=== PATIENT | female | born 1995 | race Hispanic/Latino ===

== ENCOUNTER 2018-04-24 10:54 | Emergency (ER) | payer OTHER, SELFPAY ==
[2018-04-24] MEDS ORDERED: ONDANSETRON 4 MG/2 ML VIAL ONE (11:55)
[2018-04-24] MEDS ORDERED: MORPHINE 4 MG/ML SYR ONE (11:55)
--- NOTE | 2018-04-24 11:58 | RAD REPORT ---
EXAM DESCRIPTION: US - Abdomen Exam Limited - 04/24/2018 11:28 am CLINICAL HISTORY: RUQ pain Abdominal pain. COMPARISON: No comparisons FINDINGS: The gallbladder demonstrates small shadowing gallstones. No pericholecystic fluid or gallb ladder wall thickening. The common bile duct is normal measuring 3 mm. The liver demonstrates no findings of intrahepatic biliary dilatation. IMPRESSION: Cholelithiasis.
--- NOTE | 2018-04-24 12:00 | RAD REPORT ---
EXAM DESCRIPTION: RAD - Chest Single View - 04/24/2018 11:31 am CLINICAL HISTORY: Chest pain. COMPARISON: None. FINDINGS: Portable technique limits examination quality. The lungs are grossly clear. The heart is normal in size. No displaced fractures. IMPRESSION: No acute intrathoracic process suspected.
[2018-04-24 12:07] LABS: Urine Blood 2+ (NEG); Urine Glucose NEGATIVE (NEG); Urine Protein TRACE (NEG); Urine Specific Gravity 1.025 (1.005-1.030)
[2018-04-24 12:12] LABS: Urine Bacteria >50 /HPF (<20); Urine Culture Reflex Order REFLEXED; Urine Mucus 1+ /HPF (NONE SEEN)
[2018-04-24 12:34] LABS: Bicarbonate 24 mEq/L (21-31); Glucose Level 115 mg/dL (65-120); Lipase 24 U/L (22-51); Potassium 3.8 mEq/L (3.6-5.0); Sodium Level 136 mEq/L (135-145)
[2018-04-24 12:40] LABS: ALT/SGPT 169 IU/L (10-60); AST/SGOT 215 IU/L (10-42); Albumin 4.4 g/dL (3.2-5.5); Alkaline Phosphatase 100 IU/L (42-121); Amylase Level 60 U/L (28-100); BUN Blood Urea Nitrogen 14 mg/dL (6-20); Bilirubin Direct 0.3 mg/dL (0-0.2); Bilirubin Total 0.7 mg/dL (0.3-1.2); Protein, Total 8.2 g/dL (6.0-8.3)
[2018-04-24 12:48] LABS: Absolute Lymphocytes (CBC) 0.9 K/uL (0.7-4.9); Absolute Monocytes 0.3 K/uL (0.1-1.3); Absolute Neutrophil 6.4 K/uL (1.8-8.0); Basophils % 0.5 % (0-1.3); Eosinophils % 0.2 % (0-4.4); Hematocrit 35.7 % (36.0-45.0); MCH 26.9 pg (27.0-35.0); Monocytes % 3.9 % (3.3-12.3); RBC Red Blood Cell Count 4.52 M/uL (3.86-4.86)
[2018-04-24] MEDS ORDERED: KETOROLAC 30 MG/ML INJ ONE (13:25)
--- NOTE | 2018-04-24 14:06 | EKG ---
Test Date: 2018-04-24 Test Time: 11:37:06 [place] Mixer Operator: EVETTE MEASUREMENT RESULTS: Intervals: Rate: 70 MA: 140 QRSD: 78 QT: 400 QTc: 432 Emeigh: P: 46 MA: 140 QRS: 4 T: 44 INTERPRETIVE STATEMENTS: Normal sinus rhythm with sinus arrhythmia Normal ECG No previous ECG available for comparison Electronically Signed On 04-24-18 14:05:43 CDT by Harmeet Sanchez
[2018-04-24] MEDS ORDERED: CEFTRIAXONE/SWI 1gm 1 GM/10 ML SYR ONE (15:26)
--- NOTE | 2018-04-24 15:52 | ER ---
Nurse's Notes [facility] Name: Leanne Espinoza Age: 22 yrs Sex: Female : 1995 Arrival Date: 04/24/2018 Time: 10:57 Bed 23 Private MD: None, None Diagnosis: Cholelithiasis Presentation: 04/24 10:58 Presenting complaint: Patient states: epigastric pain since 0600 today. Pt states "I aa5 know I have gastritis pains but this time is not going away and I'm having a hard time breathing". Pt reports N/V. Transition of care: patient was not received from another setting of care. Onset of symptoms was April 24, 2018. Risk Assessment: Do you want to hurt yourself or someone else? Patient reports no desire to harm self or others. Initial Sepsis Screen: Does the patient meet any 2 criteria? No. Patient's initial sepsis screen is negative. Does the patient have a suspected source of infection? No. Patient's initial sepsis screen is negative. Care prior to arrival: None. 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 - Social history:: Smoking status: Patient/guardian denies using tobacco. - Ebola Screening: : No symptoms or risks identified at this time. Screenin:12 Abuse screen: Denies threats or abuse. Denies injuries from another. Nutritional aj1 screening: No deficits noted. Tuberculosis screening: No symptoms or risk factors identified. Assessment: 11:12 General: Appears in no apparent distress. uncomfortable, Behavior is calm, cooperative, aj1 appropriate for age. Pain: Complains of pain in epigastric area Pain radiates to chest Quality of pain is described as crampy, Pain began 5 hours ago Aggravated by eating, drinking. Neuro: Level of Consciousness is awake, alert, obeys commands, Oriented to person, place, time, situation, Speech is normal, Facial symmetry appears normal. Cardiovascular: Patient's skin is warm and dry. Respiratory: Reports shortness of breath Airway is patent Respiratory effort is even, unlabored, Respiratory pattern is regular, symmetrical, Breath sounds are clear bilaterally. GI: Abdomen is flat, non-distended, Bowel sounds present X 4 quads. Abd is soft X 4 quads Abdomen is tender to palpation in epigastric area, right upper quadrant and left upper quadrant Reports nausea, vomiting. : No signs and/or symptoms were reported regarding the genitourinary system. EENT: No signs and/or symptoms were reported regarding the EENT system. Derm: No signs and/or symptoms reported regarding the dermatologic system. Skin is pink, warm \\T\\ dry. normal. Musculoskeletal: No signs and/or symptoms reported regarding the musculoskeletal system. Circulation, motion, and sensation intact. 12:18 Reassessment: Patient appears in no apparent distress at this time. No changes from aj1 previously documented assessment. Patient and/or family updated on plan of care and expected duration. Pain level reassessed. Patient is alert, oriented x 3, equal unlabored respirations, skin warm/dry/pink. 13:27 Reassessment: Patient states that the morphine helped her pain, but now it is coming aj1 back. Notified Clarice Martínez NP. Order received. 14:41 Reassessment: Patient appears in no apparent distress at this time. No changes from aj1 previously documented assessment. Patient and/or family updated on plan of care and expected duration. Pain level reassessed. Patient is alert, oriented x 3, equal unlabored respirations, skin warm/dry/pink. 15:29 Reassessment: Patient appears in no apparent distress at this time. No changes from aj1 previously documented assessment. Patient and/or family updated on plan of care and expected duration. Pain level reassessed. Patient is alert, oriented x 3, equal unlabored respirations, skin warm/dry/pink. Patient states that she would like to speak with the provider again. Notified Clarice Martínez NP. Vital Signs: 10:59 BP 123 / 77; Pulse 83; Resp 16 S; Temp 98.3(TE); Pulse Ox 100% on R/A; Weight 72.57 kg aa5 (R); Height 5 ft. 4 in. (162.56 cm) (R); Pain 7/10; 12:18 BP 107 / 70; Pulse 63; Resp 18; Pulse Ox 99% on R/A; aj1 13:28 BP 114 / 80; Pulse 62; Resp 18; Pulse Ox 100% on R/A; aj1 14:41 BP 104 / 71; Pulse 63; Resp 18; Pulse Ox 100% on R/A; aj1 15:30 BP 102 / 73; Pulse 63; Resp 18; Pulse Ox 100% on R/A; aj1 10:59 Body Mass Index 27.46 (72.57 kg, 162.56 cm) aa5 ED Course: 10:57 Patient arrived in ED. sb2 10:57 None, None is Private Physician. sb2 10:59 Triage completed. aa5 10:59 Arm band placed on. aa5 11:00 Jacqui Mantilla, RAJNI is Primary Nurse. aj1 11:02 Magan Martínez NP is PHCP. pm1 11:02 Marcelo Elder MD is Attending Physician. pm1 11:12 Patient has correct armband on for positive identification. Placed in gown. Bed in low aj1 position. Call light in reach. Side rails up X 1. 11:12 No provider procedures requiring assistance completed. aj1 11:13 Patient taken to ultrasound. via wheelchair. aa4 11:28 US Abdomen Limited In Process Unspecified. EDMS 11:30 Chest Single View XRAY In Process Unspecified. EDMS 11:47 EKG done, by aerospace technician. reviewed by Magan Martínez NP. sm3 12:10 Initial lab(s) drawn, by in, sent to lab. Inserted saline lock: 22 gauge in right aj1 antecubital area, using aseptic technique. Blood collected. 15:50 Ta Blackburn MD is Referral Physician. pm1 Administered Medications: 12:11 Drug: morphine 4 mg Route: IVP; Site: right antecubital; aj1 12:11 Drug: Zofran 4 mg Route: IVP; Site: right antecubital; aj1 13:29 Drug: TORadol 30 mg Route: IVP; Site: right antecubital; aj1 15:28 Drug: Rocephin 1 grams Route: IV; Rate: calculated rate; Site: right antecubital; aj1 Outcome: 15:52 Discharge ordered by . pm1 16:19 Patient left the ED. aj1 Signatures: Dispatcher [employer] Jacqui Morin RN RN aj1 Marilynn Patel aa4 Susan Burrell RN RN aa5 Magan Martínez, PHOTOENGRAVING PROOFER APPRENTICE PHOTOENGRAVING PROOFER APPRENTICE pm1 Krystal Garrett sb2 Denae Smith sm3
--- NOTE | 2018-04-24 15:52 | EDPHYS ---
Physician Documentation [facility] Name: Leanne Espinoza Age: 22 yrs Sex: Female : 1995 Arrival Date: 04/24/2018 Time: 10:57 Bed 23 Private MD: None, None ED Physician Marcelo Elder HPI: 04/24 14:00 This 22 yrs old Female presents to ER via Ambulatory with complaints of pm1 Abdominal Pain. 14:00 The patient presents with abdominal pain in the epigastric area. Onset: The pm1 symptoms/episode began/occurred 3 day(s) ago. The symptoms do not radiate. Associated signs and symptoms: Pertinent positives: nausea and vomiting, Pertinent negatives: diarrhea, dysuria, fever. The symptoms are described as achy, burning. Modifying factors: The symptoms are alleviated by nothing, the symptoms are aggravated by food. Severity of pain: in the emergency department the pain is unchanged. The patient has experienced similar episodes in the past, a few times, over the past year. The patient has not recently seen a physician. 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 - Social history:: Smoking status: Patient/guardian denies using tobacco. - Ebola Screening: : No symptoms or risks identified at this time. ROS: 14:00 Constitutional: Negative for fever, chills, and weight loss, Eyes: Negative for injury, pm1 pain, redness, and discharge, ENT: Negative for injury, pain, and discharge, Neck: Negative for injury, pain, and swelling, Cardiovascular: Negative for chest pain, palpitations, and edema, Respiratory: Negative for shortness of breath, cough, wheezing, and pleuritic chest pain. 14:00 Back: Negative for injury and pain, : Negative for injury, bleeding, discharge, and swelling, MS/Extremity: Negative for injury and deformity, Skin: Negative for injury, rash, and discoloration, Neuro: Negative for headache, weakness, numbness, tingling, and seizure. 14:00 Abdomen/GI: Positive for abdominal pain, nausea and vomiting, Negative for diarrhea. Exam: 14:00 Constitutional: This is a well developed, well nourished patient who is awake, alert, pm1 and in no acute distress. Head/Face: Normocephalic, atraumatic. Eyes: Pupils equal round and reactive to light, extra-ocular motions intact. Lids and lashes normal. Conjunctiva and sclera are non-icteric and not injected. Cornea within normal limits. Periorbital areas with no swelling, redness, or edema. ENT: Nares patent. No nasal discharge, no septal abnormalities noted. Tympanic membranes are normal and external auditory canals are clear. Oropharynx with no redness, swelling, or masses, exudates, or evidence of obstruction, uvula midline. Mucous membranes moist. Neck: Trachea midline, no thyromegaly or masses palpated, and no cervical lymphadenopathy. Supple, full range of motion without nuchal rigidity, or vertebral point tenderness. No Meningismus. Chest/axilla: Normal chest wall appearance and motion. Nontender with no deformity. No lesions are appreciated. Cardiovascular: Regular rate and rhythm with a normal S1 and S2. No gallops, murmurs, or rubs. Normal PMI, no JVD. No pulse deficits. Respiratory: Lungs have equal breath sounds bilaterally, clear to auscultation and percussion. No rales, rhonchi or wheezes noted. No increased work of breathing, no retractions or nasal flaring. 14:00 Back: No spinal tenderness. No costovertebral tenderness. Full range of motion. Skin: Warm, dry with normal turgor. Normal color with no rashes, no lesions, and no evidence of cellulitis. MS/ Extremity: Pulses equal, no cyanosis. Neurovascular intact. Full, normal range of motion. 14:00 Abdomen/GI: Inspection: abdomen appears normal, Bowel sounds: normal, Palpation: soft, mild abdominal tenderness, in the right upper quadrant, mass, is not appreciated, rebound tenderness, is not appreciated. 14:00 Neuro: Orientation: is normal, Gait: is steady. Vital Signs: 10:59 BP 123 / 77; Pulse 83; Resp 16 S; Temp 98.3(TE); Pulse Ox 100% on R/A; Weight 72.57 kg aa5 (R); Height 5 ft. 4 in. (162.56 cm) (R); Pain 7/10; 12:18 BP 107 / 70; Pulse 63; Resp 18; Pulse Ox 99% on R/A; aj1 13:28 BP 114 / 80; Pulse 62; Resp 18; Pulse Ox 100% on R/A; aj1 14:41 BP 104 / 71; Pulse 63; Resp 18; Pulse Ox 100% on R/A; aj1 15:30 BP 102 / 73; Pulse 63; Resp 18; Pulse Ox 100% on R/A; aj1 10:59 Body Mass Index 27.46 (72.57 kg, 162.56 cm) aa5 MDM: 11:08 Patient medically screened. pm1 15:49 Data reviewed: vital signs. Data interpreted: Pulse oximetry: on room air is 100 %. pm1 Interpretation: normal. Counseling: I had a detailed discussion with the patient and/or guardian regarding: the historical points, exam findings, and any diagnostic results supporting the discharge/admit diagnosis, lab results, radiology results, the need for outpatient follow up, a general surgeon, to return to the emergency department if symptoms worsen or persist or if there are any questions or concerns that arise at home. 15:50 ED course: Patient reevaluated. No tenderness with palpation and patient currently pain pm1 free. Will discharge patient home to follow up with general surgery. 04/24 11:10 Order name: Amylase, Serum; Complete Time: 13:45 pm1 04/24 11:10 Order name: Basic Metabolic Panel; Complete Time: 13:45 pm1 04/24 11:10 Order name: CBC with Diff; Complete Time: 13:45 pm1 04/24 11:10 Order name: Hepatic Function; Complete Time: 13:45 pm1 04/24 11:10 Order name: Lipase; Complete Time: 13:45 pm1 04/24 11:10 Order name: Urine Microscopic Only; Complete Time: 12:32 pm1 04/24 11:10 Order name: Troponin (emerg Dept Use Only); Complete Time: 13:45 pm1 04/24 11:10 Order name: Chest Single View XRAY; Complete Time: 12:32 pm1 04/24 11:11 Order name: US Abdomen Limited; Complete Time: 12:32 pm1 04/24 11:31 Order name: Urine Dipstick--Ancillary (enter results); Complete Time: 12:32 bd 04/24 11:31 Order name: Urine --Ancillary (enter results); Complete Time: 12:32 bd 04/24 12:14 Order name: Urine Culture [facility] 04/24 11:10 Order name: Urine Test (obtain specimen); Complete Time: 11:49 pm1 04/24 11:10 Order name: IV Saline Lock; Complete Time: 12:57 pm1 04/24 11:10 Order name: Labs collected and sent; Complete Time: 12:57 pm1 04/24 11:10 Order name: Urine Dipstick-Ancillary (obtain specimen); Complete Time: 11:49 pm1 04/24 11:10 Order name: EKG; Complete Time: 11:11 pm1 04/24 11:10 Order name: EKG - Nurse/Tech; Complete Time: 11:49 pm1 Administered Medications: 12:11 Drug: morphine 4 mg Route: IVP; Site: right antecubital; aj1 12:11 Drug: Zofran 4 mg Route: IVP; Site: right antecubital; aj1 13:29 Drug: TORadol 30 mg Route: IVP; Site: right antecubital; aj1 15:28 Drug: Rocephin 1 grams Route: IV; Rate: calculated rate; Site: right antecubital; aj1 Disposition: 04/24/18 15:52 Discharged to Home. Impression: Cholelithiasis. - Condition is Stable. - Discharge Instructions: Urinary Tract Infection, Cholelithiasis. - Prescriptions for Bentyl 20 mg Oral Tablet - take 1 tablet by ORAL route every 6 hours As needed; 20 tablet. Tylenol- Codeine #3 300-30 mg Oral Tablet - take 2 tablets by ORAL route every 6 hours As needed; 20 tablet. Zofran 4 mg Oral Tablet - take 1 tablet by ORAL route every 12 hours As needed; 20 tablet. Bactrim DS 800- 160 mg Oral Tablet - take 1 tablet by ORAL route every 12 hours for 10 days; 20 tablet. - Medication Reconciliation Form, Thank You Letter, Antibiotic Education, Prescription Opioid Use form. - Follow up: Emergency Department; When: As needed; Reason: Worsening of condition. Follow up: Ta Blackburn MD; When: 2 - 3 days; Reason: Recheck today's complaints, Continuance of care, Re-evaluation by your physician. - Problem is new. - Symptoms have improved. Addendum: 04/28/2018 07:03 Co-signature as Attending Physician, Marcelo Elder MD I agree with the assessment and k dr plan of care. Signatures: Dispatcher [employer] EDMS Jacqui Mantilla RN RN aj1 Marcelo Elder MD MD [facility] Susan Burrell RN RN aa5 Magan Martínez NP VOICE WRITING REPORTER pm1 Corrections: (The following items were deleted from the chart) 04/24 16:19 15:52 04/24/2018 15:52 Discharged to Home. Impression: Cholelithiasis. Condition is aj1 Stable. Forms are Medication Reconciliation Form, Thank You Letter, Antibiotic Education, Prescription Opioid Use. Follow up: Emergency Department; When: As needed; Reason: Worsening of condition. Follow up: Ta Blackburn; When: 2 - 3 days; Reason: Recheck today's complaints, Continuance of care, Re-evaluation by your physician. Problem is new. Symptoms have improved. pm1
== END 2018-04-24 16:19 | disposition home or self-care (01) ==
LOC: ER 10:54
DX: K80.20 Calculus of gallbladder without cholecystitis without obstruction (principal)
CPT/HCPCS: 36415; 71045; 76705; 80048; 80076; 81003; 81015; 81025; 82150; 83690; 84484; 85025; 87086; 87088; 93005; 96374; 96375; 99284; J0696; J2405

== ENCOUNTER 2018-06-01 21:24 | Emergency (ER) | payer OTHER ==
[2018-06-01] MEDS ORDERED: MORPHINE 4 MG/ML SYR ONE (22:17)
[2018-06-01] MEDS ORDERED: KETOROLAC 30 MG/ML INJ ONE (22:18)
[2018-06-01] MEDS ORDERED: NA CHLORIDE 0.9% 1,000 ML ONE (22:18)
[2018-06-01] MEDS ORDERED: ONDANSETRON 4 MG/2 ML VIAL ONE (22:18)
[2018-06-01 22:22] LABS: Absolute Lymphocytes (CBC) 1.5 K/uL (0.7-4.9); Absolute Monocytes 0.5 K/uL (0.1-1.3); Absolute Neutrophil 8.9 K/uL (1.8-8.0); Basophils % 0.3 % (0-1.3); Eosinophils % 0.3 % (0-4.4); Hematocrit 37.4 % (36.0-45.0); Lymphocytes % 13.3 % (15.3-44.8); MCH 26.9 pg (27.0-35.0); MCV 81.1 fL (80-100); MPV 7.9 fL (7.6-11.3); Monocytes % 4.9 % (3.3-12.3); RBC Red Blood Cell Count 4.62 M/uL (3.86-4.86)
[2018-06-01 22:26] LABS: Urine Blood TRACE (NEG); Urine Glucose NEGATIVE (NEG); Urine Protein NEGATIVE (NEG); Urine Specific Gravity 1.025 (1.005-1.030); Urine pH 6.5 (5.0-7.0)
[2018-06-01 22:36] LABS: ALT/SGPT 33 U/L (12-78); AST/SGOT 22 U/L (15-37); Albumin 4.4 g/dL (3.4-5.0); Alkaline Phosphatase 111 U/L (45-117); BUN Blood Urea Nitrogen 11 mg/dL (7-18); Bicarbonate 25 mmol/L (21-32); Bilirubin Direct 0.2 mg/dL (0-0.2); Bilirubin Total 0.4 mg/dL (0.2-1.0); Glucose Level 128 mg/dL (74-106); Lipase 88 U/L (73-393); Potassium 3.5 mmol/L (3.5-5.1); Protein, Total 8.7 g/dL (6.4-8.2); Sodium Level 140 mmol/L (136-145)
--- NOTE | 2018-06-02 00:56 | ER ---
Nurse's Notes [facility] Name: Leanne Espinoza Age: 22 yrs Sex: Female : 1995 Arrival Date: 06/01/2018 Time: 21:25 Bed 15 Private MD: Diagnosis: Cholelithiasis Presentation: 06/01 21:34 Presenting complaint: Patient states: epigastric pain and right upper quadrant pain ak1 since 1800. N/V. Transition of care: patient was not received from another setting of care. Onset of symptoms was June 01, 2018. Risk Assessment: Do you want to hurt yourself or someone else? Patient reports no desire to harm self or others. Initial Sepsis Screen: Does the patient meet any 2 criteria? No. Patient's initial sepsis screen is negative. Does the patient have a suspected source of infection? No. Patient's initial sepsis screen is negative. Care prior to arrival: None. 21:34 Method Of Arrival: Ambulatory ak1 21:34 Acuity: ACE 3 ak1 WRAPPER STEMMER HAND: 21:36 LMP 05/24/2018 ak1 Historical: - Allergies: 21:36 No Known Allergies; ak1 - Home Meds: 21:36 ursodiol 300 mg Oral cap 1 cap 2 times per day [Active]; ak1 - PMHx: 21:36 gastritis; gallstones; ak1 - PSHx: 21:36 ear sx; ak1 - Immunization history:: Adult Immunizations up to date. - Social history:: Smoking status: Patient/guardian denies using tobacco. - Ebola Screening: : No symptoms or risks identified at this time. Screenin:56 Abuse screen: Denies threats or abuse. Denies injuries from another. Nutritional bs1 screening: No deficits noted. Tuberculosis screening: No symptoms or risk factors identified. Fall Risk None identified. Assessment: 22:34 General: Appears in no apparent distress. uncomfortable, Behavior is cooperative, bs1 appropriate for age, anxious. Pain: Complains of pain in epigastric, right upper/lower abdomen Pain does not radiate. Neuro: Level of Consciousness is awake, alert, obeys commands, Oriented to person, place, time, situation, Appropriate for age Industrial Gas Servicer Helper are equal bilaterally. Cardiovascular: Denies chest pain, shortness of breath, Heart tones S1 S2 present Capillary refill < 3 seconds Patient's skin is warm and dry. Respiratory: Airway is patent Trachea midline Respiratory effort is even, unlabored, Respiratory pattern is regular, symmetrical, Breath sounds are clear bilaterally. GI: Abdomen is round non-distended, Bowel sounds present X 4 quads. Abdomen is tender to palpation in epigastric area, right upper quadrant and right lower quadrant Guarding noted Reports lower abdominal pain, upper abdominal pain, nausea, vomiting. : Denies burning with urination. EENT: No signs and/or symptoms were reported regarding the EENT system. Derm: Skin is intact. Musculoskeletal: Circulation, motion, and sensation intact. Capillary refill < 3 seconds, Range of motion:. 23:45 Reassessment: Patient appears in no apparent distress at this time. Patient and/or bs1 family updated on plan of care and expected duration. Pain level reassessed. Patient is alert, oriented x 3, equal unlabored respirations, skin warm/dry/pink. Pending CT results. 06/02 01:04 Reassessment: Patient appears in no apparent distress at this time. Patient and/or bs1 family updated on plan of care and expected duration. Pain level reassessed. Patient is alert, oriented x 3, equal unlabored respirations, skin warm/dry/pink. Patient states understanding of DC instrcutions Patient states feeling better. Vital Signs: 06/01 21:36 BP 129 / 82; Pulse 97; Resp 18; Temp 97.7(TE); Pulse Ox 99% on R/A; Weight 71.67 kg ak1 (R); Height 5 ft. 4 in. (162.56 cm) (R); Pain 10/10; 22:30 BP 129 / 89; Pulse 71; Resp 16 S; Pulse Ox 95% on R/A; bs1 23:30 BP 124 / 84; Pulse 70; Resp 17 S; Pulse Ox 100% on R/A; bs1 06/02 00:30 BP 122 / 82; Pulse 57; Resp 16; Temp 97.9(O); Pulse Ox 99% on R/A; Pain 3/10; bs1 06/01 21:36 Body Mass Index 27.12 (71.67 kg, 162.56 cm) ak ED Course: 06/01 21:25 Patient arrived in ED. es 21:35 Triage completed. ak1 21:36 Arm band placed on Patient placed in an exam room, on a stretcher, Patient notified of ak1 wait time. 21:40 Magan Martínez NP is PHCP. pm1 21:40 Varghese Subramanian MD is Attending Physician. pm1 21:49 Andree Morrell, RAJNI is Primary Nurse. bs1 22:03 US Abdomen Limited In Process Unspecified. EDMS 22:57 Patient has correct armband on for positive identification. Bed in low position. Call bs1 light in reach. Side rails up X 1. Pulse ox on. NIBP on. 06/02 00:56 Ta Blackburn MD is Referral Physician. pm1 01:02 No provider procedures requiring assistance completed. IV discontinued, bleeding bs1 controlled, No redness/swelling at site. Pressure dressing applied. Administered Medications: 06/01 22: Drug: NS 0.9% 1000 ml Route: IV; Rate: 1000 ml; Site: right antecubital; bs1 06/02 01:03 Follow up: IV Status: Completed infusion bs1 06/01 22: Drug: TORadol 30 mg Route: IVP; Site: right antecubital; bs1 06/02 01:03 Follow up: Response: No adverse reaction bs1 06/01 22:24 Drug: Zofran 4 mg Route: IVP; Site: right antecubital; bs1 06/02 01:03 Follow up: Response: No adverse reaction bs1 06/01 22:24 Drug: morphine 4 mg Route: IVP; Site: right antecubital; bs1 06/02 01:03 Follow up: Response: No adverse reaction bs1 Outcome: 00:55 Discharge ordered by . pm1 01:02 Discharged to home ambulatory, with family. bs1 01:02 Condition: stable 01:02 Discharge instructions given to patient, Instructed on discharge instructions, follow up and referral plans. medication usage, Demonstrated understanding of instructions, follow-up care, medications, Prescriptions given X 2. 01:06 Patient left the ED. bs1 Signatures: Dispatcher [employer] Karen Pink Amber, RN RN ak1 Magan Martínez, GAMAL DIPLOMATIC COURIER pm1 Andree Morrell, RAJNI RN bs1
--- NOTE | 2018-06-02 00:56 | EDPHYS ---
Physician Documentation [facility] Name: Leanne Espinoza Age: 22 yrs Sex: Female : 1995 Arrival Date: 06/01/2018 Time: 21:25 Bed 15 Private MD: ED Physician Varghese Subramanian HPI: 06/01 22:00 This 22 yrs old Female presents to ER via Ambulatory with complaints of pm1 Abdominal Pain. 22:00 The patient presents with abdominal pain in the epigastric area, in the right upper pm1 quadrant. Onset: The symptoms/episode began/occurred this morning. The symptoms do not radiate. Associated signs and symptoms: Pertinent negatives: nausea, vomiting, and diarrhea, chest pain, dysuria, fever, shortness of breath. The symptoms are described as achy, crampy. Modifying factors: The symptoms are alleviated by nothing, the symptoms are aggravated by food, Potato chips this AM. Severity of pain: in the emergency department the pain is actually worse. The patient has experienced a previous episode, approximately 1 months ago, and the symptoms today are exactly the same, cholellithiasis. The patient has been recently seen at the [facility] Emergency Department, last month. 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 - Social history:: Smoking status: Patient/guardian denies using tobacco. - Ebola Screening: : No symptoms or risks identified at this time. ROS: 22:00 Constitutional: Negative for fever, chills, and weight loss, Eyes: Negative for injury, pm1 pain, redness, and discharge, ENT: Negative for injury, pain, and discharge, Neck: Negative for injury, pain, and swelling, Cardiovascular: Negative for chest pain, palpitations, and edema, Respiratory: Negative for shortness of breath, cough, wheezing, and pleuritic chest pain. 22:00 Back: Negative for injury and pain, : Negative for injury, bleeding, discharge, and swelling, MS/Extremity: Negative for injury and deformity, Skin: Negative for injury, rash, and discoloration, Neuro: Negative for headache, weakness, numbness, tingling, and seizure. 22:00 Abdomen/GI: Positive for abdominal pain, Negative for nausea, vomiting, and diarrhea. Exam: 22:00 Constitutional: This is a well developed, well nourished patient who is awake, alert, pm1 and in no acute distress. Head/Face: Normocephalic, atraumatic. Eyes: Pupils equal round and reactive to light, extra-ocular motions intact. Lids and lashes normal. Conjunctiva and sclera are non-icteric and not injected. Cornea within normal limits. Periorbital areas with no swelling, redness, or edema. ENT: Nares patent. No nasal discharge, no septal abnormalities noted. Tympanic membranes are normal and external auditory canals are clear. Oropharynx with no redness, swelling, or masses, exudates, or evidence of obstruction, uvula midline. Mucous membranes moist. Neck: Trachea midline, no thyromegaly or masses palpated, and no cervical lymphadenopathy. Supple, full range of motion without nuchal rigidity, or vertebral point tenderness. No Meningismus. Chest/axilla: Normal chest wall appearance and motion. Nontender with no deformity. No lesions are appreciated. Cardiovascular: Regular rate and rhythm with a normal S1 and S2. No gallops, murmurs, or rubs. Normal PMI, no JVD. No pulse deficits. Respiratory: Lungs have equal breath sounds bilaterally, clear to auscultation and percussion. No rales, rhonchi or wheezes noted. No increased work of breathing, no retractions or nasal flaring. 22:00 Back: No spinal tenderness. No costovertebral tenderness. Full range of motion. Skin: Warm, dry with normal turgor. Normal color with no rashes, no lesions, and no evidence of cellulitis. MS/ Extremity: Pulses equal, no cyanosis. Neurovascular intact. Full, normal range of motion. 22:00 Abdomen/GI: Inspection: abdomen appears normal, Bowel sounds: normal, Palpation: soft, mild abdominal tenderness, in the epigastric area. 22:00 Neuro: Orientation: is normal, Motor: is normal, moves all fours. Vital Signs: 21:36 BP 129 / 82; Pulse 97; Resp 18; Temp 97.7(TE); Pulse Ox 99% on R/A; Weight 71.67 kg ak1 (R); Height 5 ft. 4 in. (162.56 cm) (R); Pain 10/10; 22:30 BP 129 / 89; Pulse 71; Resp 16 S; Pulse Ox 95% on R/A; bs1 23:30 BP 124 / 84; Pulse 70; Resp 17 S; Pulse Ox 100% on R/A; bs1 06/02 00:30 BP 122 / 82; Pulse 57; Resp 16; Temp 97.9(O); Pulse Ox 99% on R/A; Pain 3/10; bs1 06/01 21:36 Body Mass Index 27.12 (71.67 kg, 162.56 cm) ak1 MDM: 06/01 21:40 Patient medically screened. pm1 06/02 00:54 Data reviewed: vital signs. Data interpreted: Pulse oximetry: on room air is 100 %. pm1 Interpretation: normal. Counseling: I had a detailed discussion with the patient and/or guardian regarding: the historical points, exam findings, and any diagnostic results supporting the discharge/admit diagnosis, lab results, radiology results, the need for outpatient follow up, for definitive care, a general surgeon, to return to the emergency department if symptoms worsen or persist or if there are any questions or concerns that arise at home. 01:00 ED course: Abdomen soft and non-tender. patient's pain improved with medications given. pm1 Patient has hydrocodone at home. 06/01 21:41 Order name: Basic Metabolic Panel; Complete Time: 22:41 pm1 06/01 21:41 Order name: CBC with Diff; Complete Time: 22:41 pm1 06/01 21:41 Order name: Hepatic Function; Complete Time: 22:41 pm1 06/01 21:41 Order name: Lipase; Complete Time: 22:41 pm1 06/01 22:13 Order name: Urine Dipstick--Ancillary (enter results); Complete Time: 22:41 mt 06/01 22:13 Order name: Urine --Ancillary (enter results); Complete Time: 22:41 mt 06/01 21:41 Order name: Urine Test (obtain specimen); Complete Time: 22:13 pm1 06/01 21:41 Order name: IV Saline Lock; Complete Time: 22:13 pm1 06/01 21:41 Order name: Labs collected and sent; Complete Time: 22:13 pm1 06/01 21:42 Order name: US Abdomen Limited pm1 06/01 21:41 Order name: Urine Dipstick-Ancillary (obtain specimen); Complete Time: 22:13 pm1 Administered Medications: 06/01 22: Drug: NS 0.9% 1000 ml Route: IV; Rate: 1000 ml; Site: right antecubital; 1 06/02 01:03 Follow up: IV Status: Completed infusion bs1 06/01 22: Drug: TORadol 30 mg Route: IVP; Site: right antecubital; [facility] 06/02 01:03 Follow up: Response: No adverse reaction [facility] 06/01 22:24 Drug: Zofran 4 mg Route: IVP; Site: right antecubital; 1 06/02 01:03 Follow up: Response: No adverse reaction [facility] 06/01 22: Drug: morphine 4 mg Route: IVP; Site: right antecubital; 1 06/02 01:03 Follow up: Response: No adverse reaction 1 Disposition: :18 Co-signature as Attending Physician, Varghese Subramanian MD. Disposition: 06/02/18 00:55 Discharged to Home. Impression: Cholelithiasis. - Condition is Stable. - Discharge Instructions: Cholelithiasis. - Prescriptions for Bentyl 20 mg Oral Tablet - take 1 tablet by ORAL route every 6 hours As needed; 20 tablet. Zofran 4 mg Oral Tablet - take 1 tablet by ORAL route every 12 hours As needed; 20 tablet. - Medication Reconciliation Form, Thank You Letter, Prescription Opioid Use form. - Follow up: Emergency Department; When: As needed; Reason: Worsening of condition. Follow up: Private Physician; When: 2 - 3 days; Reason: Recheck today's complaints, Continuance of care, Re-evaluation by your physician. Follow up: Ta Blackburn MD; When: 2 - 3 days; Reason: Recheck today's complaints, Continuance of care, Re-evaluation by your physician. - Problem is new. - Symptoms have improved. Signatures: Dispatcher [employer] EDFranchesca Guerra, RN RN ak1 Magan Martínez, SERVICE DESK AGENT SERVICE DESK AGENT pm1 Varghese Subramanian MD MD Andree Morrell, RN RN bs1 Corrections: (The following items were deleted from the chart) 00:56 00:55 06/02/2018 00:55 Discharged to Home. Impression: Cholelithiasis. Condition is pm1 Stable. Forms are Medication Reconciliation Form, Thank You Letter, Antibiotic Education, Prescription Opioid Use. Follow up: Emergency Department; When: As needed; Reason: Worsening of condition. Follow up: Private Physician; When: 2 - 3 days; Reason: Recheck today's complaints, Continuance of care, Re-evaluation by your physician. Problem is new. Symptoms have improved. pm1 01:06 00:56 06/02/2018 00:55 Discharged to Home. Impression: Cholelithiasis. Condition is bs1 Stable. Discharge Instructions: Cholelithiasis. Prescriptions for Bentyl 20 mg Oral Tablet - take 1 tablet by ORAL route every 6 hours As needed; 20 tablet, Zofran 4 mg Oral Tablet - take 1 tablet by ORAL route every 12 hours As needed; 20 tablet. and Forms are Medication Reconciliation Form, Thank You Letter, Prescription Opioid Use. Follow up: Emergency Department; When: As needed; Reason: Worsening of condition. Follow up: Private Physician; When: 2 - 3 days; Reason: Recheck today's complaints, Continuance of care, Re-evaluation by your physician. Follow up: Ta Blackburn; When: 2 - 3 days; Reason: Recheck today's complaints, Continuance of care, Re-evaluation by your physician. Problem is new. Symptoms have improved. pm1
--- NOTE | 2018-06-02 08:12 | RAD REPORT ---
EXAM DESCRIPTION: US - Abdomen Exam Limited - 06/01/2018 10:03 pm CLINICAL HISTORY: Abdominal pain. COMPARISON: April 2018 A preliminary report was generated by virtual radiologic and reviewed prior to this dictation. FINDINGS: Several gallstones are present. The gallbladder wall is upper limits normal thickness. The biliary tree is normal caliber. IMPRESSION: Cholelithiasis
== END 2018-06-02 01:06 | disposition home or self-care (01) ==
LOC: ER 21:24
DX: K80.20 Calculus of gallbladder without cholecystitis without obstruction (principal)
CPT/HCPCS: 36415; 76705; 80048; 80076; 81003; 81025; 83690; 85025; 96361; 96374; 96375; 99284; J2405; J7030

== ENCOUNTER 2018-06-07 22:41 | Emergency (ER) | payer OTHER ==
[2018-06-08] LABS: Urine Blood 1+ (NEG); Urine Glucose NEGATIVE (NEG); Urine Protein NEGATIVE (NEG); Urine Specific Gravity 1.025 (1.005-1.030); Urine pH 6.5 (5.0-7.0)
[2018-06-08] MEDS ORDERED: MORPHINE 4 MG/ML SYR ONE (00:26)
[2018-06-08] MEDS ORDERED: KETOROLAC 30 MG/ML INJ ONE (00:26)
[2018-06-08] MEDS ORDERED: ONDANSETRON 4 MG/2 ML VIAL ONE (00:26)
[2018-06-08 00:30] LABS: Absolute Monocytes 0.4 K/uL (0.1-1.3); Basophils % 0.4 % (0-1.3); Eosinophils % 2.1 % (0-4.4); Hematocrit 35.9 % (36.0-45.0); Lymphocytes % 26.5 % (15.3-44.8); MCH 27.4 pg (27.0-35.0); MCV 80.5 fL (80-100); MPV 7.6 fL (7.6-11.3); Monocytes % 5.7 % (3.3-12.3); RBC Red Blood Cell Count 4.46 M/uL (3.86-4.86)
[2018-06-08 00:51] LABS: ALT/SGPT 27 U/L (12-78); AST/SGOT 19 U/L (15-37); Albumin 4.1 g/dL (3.4-5.0); Alkaline Phosphatase 104 U/L (45-117); BUN Blood Urea Nitrogen 11 mg/dL (7-18); Bicarbonate 26 mmol/L (21-32); Bilirubin Direct 0.1 mg/dL (0-0.2); Bilirubin Total 0.4 mg/dL (0.2-1.0); Glucose Level 108 mg/dL (74-106); Lipase 90 U/L (73-393); Potassium 3.8 mmol/L (3.5-5.1); Protein, Total 8.3 g/dL (6.4-8.2); Sodium Level 142 mmol/L (136-145)
[2018-06-08] MEDS ORDERED: NA CHLORIDE 0.9% 1,000 ML ONE (01:07)
--- NOTE | 2018-06-08 02:47 | ER ---
Nurse's Notes [facility] Name: Leanne Espinoza Age: 22 yrs Sex: Female : 1995 Arrival Date: 06/07/2018 Time: 22:43 Bed 17 Private MD: Diagnosis: Cholelithiasis Presentation: 06/07 23:02 Presenting complaint: Patient states: "I have abdominal pain because of the gall lp1 stones"; Diagnosed last month, scheduled surgery with Dr. Silva but waited to perform because of insurance; States pain worse, not controlled with prescribed Hydrocodone. Transition of care: patient was not received from another setting of care. Onset of symptoms was June 07, 2018. Risk Assessment: Do you want to hurt yourself or someone else? Patient reports no desire to harm self or others. Initial Sepsis Screen: Does the patient meet any 2 criteria? No. Patient's initial sepsis screen is negative. Does the patient have a suspected source of infection? No. Patient's initial sepsis screen is negative. Care prior to arrival: None. 23:02 Method Of Arrival: Ambulatory lp1 23:02 Acuity: ACE 3 lp1 SMALL BUSINESS SALES REPRESENTATIVE: 23:05 LMP 05/10/2018 lp1 Historical: - Allergies: 23:06 No Known Allergies; lp1 - Home Meds: 23:06 ursodiol 300 mg Oral cap 1 cap 2 times per day [Active]; Hydrocodone [Active]; Zofran lp1 Oral [Active]; - PMHx: 23:06 GALLSTONES; gastritis; lp1 - PSHx: 23:06 Ear Tubes; lp1 - Immunization history:: Adult Immunizations up to date. - Social history:: Smoking status: Patient/guardian denies using tobacco. - Ebola Screening: : No symptoms or risks identified at this time. Screenin:21 Abuse screen: Denies threats or abuse. Denies injuries from another. Nutritional lp1 screening: No deficits noted. Tuberculosis screening: No symptoms or risk factors identified. Fall Risk None identified. Assessment: 23:20 General: Appears uncomfortable, Behavior is appropriate for age. Pain: Complains of lp1 pain in epigastric area Pain radiates to right upper quadrant and left upper quadrant Pain currently is 9 out of 10 on a pain scale. Alleviated by nothing. Noted to be guarding. Neuro: Level of Consciousness is awake, alert, obeys commands. Cardiovascular: Patient's skin is warm and dry. Respiratory: Respiratory effort is even, unlabored. GI: Abdomen is non-distended, Bowel sounds present X 4 quads. Abdomen is tender to palpation in epigastric area and right upper quadrant. : No signs and/or symptoms were reported regarding the genitourinary system. EENT: No signs and/or symptoms were reported regarding the EENT system. Derm: Skin is pink, warm \\T\\ dry. Musculoskeletal: Circulation, motion, and sensation intact. 06/08 00:45 Reassessment: No changes from previously documented assessment. Patient and/or family bs1 updated on plan of care and expected duration. Pain level reassessed. Patient is alert, oriented x 3, equal unlabored respirations, skin warm/dry/pink. Informed patient of POC/pending CT scan. No further needs at this time. 02:45 Reassessment: Patient appears in no apparent distress at this time. Patient and/or bs1 family updated on plan of care and expected duration. Pain level reassessed. Patient is alert, oriented x 3, equal unlabored respirations, skin warm/dry/pink. Patient states feeling better. Patient states symptoms have improved. 03:13 Reassessment: Informed patient on discharge instructions, to stay away from fast/fried bs1 food/spicy food. Patient states understanding of POC. Vital Signs: 06/07 23:06 BP 132 / 91; Pulse 62; Resp 16; Temp 98.3(O); Pulse Ox 99% on R/A; Weight 71.67 kg; lp1 Height 5 ft. 0 in. (152.40 cm); Pain 9/10; 06/08 00:06 BP 127 / 91; Pulse 64; Resp 16 S; Pulse Ox 97% on R/A; bs1 01:06 BP 116 / 85; Pulse 61; Resp 16 S; Pulse Ox 98% ; bs1 02:06 BP 114 / 84; Pulse 60; Resp 16 S; Pulse Ox 97% on R/A; bs1 03:00 BP 125 / 84; Pulse 55; Resp 16; Temp 97.9(O); Pulse Ox 98% on R/A; Pain 4/10; bs1 06/07 23:06 Body Mass Index 30.86 (71.67 kg, 152.40 cm) lp1 ED Course: 06/07 22:43 Patient arrived in ED. es 23:05 Triage completed. lp1 23:05 Arm band placed on left wrist. lp1 06/08 00:03 Andree Morrell, RAJNI is Primary Nurse. bs1 00:04 Magan Martínez NP is PHCP. pm1 00:04 Varghese Subramanian MD is Attending Physician. pm1 00:20 Patient has correct armband on for positive identification. Bed in low position. Call bs1 light in reach. Side rails up X 1. Pulse ox on. NIBP on. 00:22 Initial lab(s) drawn, by me, sent to lab. Inserted saline lock: 22 gauge in right ks6 antecubital area, using aseptic technique. Blood collected. 00:[address] via wheelchair. kw1 00:44 CT Abd/Pelvis - W/Contrast: IV contrast only In Process Unspecified. EDMS 00:47 CT completed. Patient tolerated procedure well. Patient moved back from CT. kw1 03:10 No provider procedures requiring assistance completed. IV discontinued, bleeding bs1 controlled, No redness/swelling at site. Pressure dressing applied. Administered Medications: 00:29 Drug: TORadol 30 mg Route: IVP; Site: right antecubital; bs1 03:11 Follow up: Response: No adverse reaction bs1 00:29 Drug: morphine 4 mg Route: IVP; Site: right antecubital; bs1 03:11 Follow up: Response: No adverse reaction bs1 00:29 Drug: Zofran 4 mg Route: IVP; Site: right antecubital; bs1 03:11 Follow up: Response: No adverse reaction bs1 01:07 Drug: NS 0.9% 1000 ml Route: IV; Rate: 1000 ml; Site: right antecubital; bs1 03:11 Follow up: IV Status: Completed infusion bs1 Outcome: 02:46 Discharge ordered by . pm1 03:10 Discharged to home ambulatory, with family. bs1 03:10 Condition: stable 03:10 Discharge instructions given to patient, Instructed on discharge instructions, follow up and referral plans. medication usage, Demonstrated understanding of instructions, follow-up care, medications, Prescriptions given X 1. 03:15 Patient left the ED. bs1 Signatures: Dispatcher [employer] aKren Pink Laura, RN RN lp1 Magan Martínez, RV PARTS AND SERVICE DIRECTOR RV PARTS AND SERVICE DIRECTOR pm1 Bisi Aparicio1 Andree Morrell RN RN bs1 Alo Webb ks6
--- NOTE | 2018-06-08 02:47 | EDPHYS ---
Physician Documentation [facility] Name: Leanne Espinoza Age: 22 yrs Sex: Female : 1995 Arrival Date: 06/07/2018 Time: 22:43 Bed 17 Private MD: ED Physician Varghese Subramanian HPI: 06/08 01:00 This 22 yrs old Female presents to ER via Ambulatory with complaints of pm1 Abdominal Pain. 01:00 The patient presents with abdominal pain in the epigastric area, in the right upper pm1 quadrant. Onset: The symptoms/episode began/occurred today. The symptoms radiate to right back. Associated signs and symptoms: Pertinent negatives: nausea, vomiting, and diarrhea, chest pain, dysuria, fever, shortness of breath. The symptoms are described as crampy. Modifying factors: The symptoms are alleviated by nothing, the symptoms are aggravated by food. Severity of pain: in the emergency department the pain is actually worse. The patient has experienced similar episodes in the past, multiple times, and the symptoms today are exactly the same, to previous cholelithiasis DX 6 days ago. The patient has been recently seen by a physician: Dr. Silva, general surgeon at [place] 2 day(s) ago. Patient with schedule surgery on 06/15 or 06/21. DIRECTOR IMAGING: 06/07 23:05 LMP 05/10/2018 lp1 Historical: - Allergies: 23:06 No Known Allergies; lp1 - Home Meds: 23:06 ursodiol 300 mg Oral cap 1 cap 2 times per day [Active]; Hydrocodone [Active]; Zofran lp1 Oral [Active]; - PMHx: 23:06 GALLSTONES; gastritis; lp1 - PSHx: 23:06 Ear Tubes; lp1 - Immunization history:: Adult Immunizations up to date. - Social history:: Smoking status: Patient/guardian denies using tobacco. - Ebola Screening: : No symptoms or risks identified at this time. ROS: 06/08 01:00 Constitutional: Negative for fever, chills, and weight loss, Eyes: Negative for injury, pm1 pain, redness, and discharge, ENT: Negative for injury, pain, and discharge, Neck: Negative for injury, pain, and swelling, Cardiovascular: Negative for chest pain, palpitations, and edema, Respiratory: Negative for shortness of breath, cough, wheezing, and pleuritic chest pain. Back: Negative for injury and pain, : Negative for injury, bleeding, discharge, and swelling, MS/Extremity: Negative for injury and deformity, Skin: Negative for injury, rash, and discoloration, Neuro: Negative for headache, weakness, numbness, tingling, and seizure. Abdomen/GI: Positive for abdominal pain, Negative for nausea, vomiting, and diarrhea. Exam: 01:00 Constitutional: This is a well developed, well nourished patient who is awake, alert, pm1 and in no acute distress. Head/Face: Normocephalic, atraumatic. Eyes: Pupils equal round and reactive to light, extra-ocular motions intact. Lids and lashes normal. Conjunctiva and sclera are non-icteric and not injected. Cornea within normal limits. Periorbital areas with no swelling, redness, or edema. ENT: Nares patent. No nasal discharge, no septal abnormalities noted. Tympanic membranes are normal and external auditory canals are clear. Oropharynx with no redness, swelling, or masses, exudates, or evidence of obstruction, uvula midline. Mucous membranes moist. Neck: Trachea midline, no thyromegaly or masses palpated, and no cervical lymphadenopathy. Supple, full range of motion without nuchal rigidity, or vertebral point tenderness. No Meningismus. Chest/axilla: Normal chest wall appearance and motion. Nontender with no deformity. No lesions are appreciated. Cardiovascular: Regular rate and rhythm with a normal S1 and S2. No gallops, murmurs, or rubs. Normal PMI, no JVD. No pulse deficits. Respiratory: Lungs have equal breath sounds bilaterally, clear to auscultation and percussion. No rales, rhonchi or wheezes noted. No increased work of breathing, no retractions or nasal flaring. 01:00 Back: No spinal tenderness. No costovertebral tenderness. Full range of motion. Skin: Warm, dry with normal turgor. Normal color with no rashes, no lesions, and no evidence of cellulitis. MS/ Extremity: Pulses equal, no cyanosis. Neurovascular intact. Full, normal range of motion. 01:00 Abdomen/GI: Inspection: abdomen appears normal, Bowel sounds: normal, Palpation: soft, mild abdominal tenderness, in the right upper quadrant, mass, is not appreciated, rebound tenderness, is not appreciated. 01:00 Neuro: Orientation: is normal, Motor: is normal, moves all fours. Vital Signs: 06/07 23:06 BP 132 / 91; Pulse 62; Resp 16; Temp 98.3(O); Pulse Ox 99% on R/A; Weight 71.67 kg; lp1 Height 5 ft. 0 in. (152.40 cm); Pain 9/10; 06/08 00:06 BP 127 / 91; Pulse 64; Resp 16 S; Pulse Ox 97% on R/A; bs1 01:06 BP 116 / 85; Pulse 61; Resp 16 S; Pulse Ox 98% ; bs1 02:06 BP 114 / 84; Pulse 60; Resp 16 S; Pulse Ox 97% on R/A; bs1 03:00 BP 125 / 84; Pulse 55; Resp 16; Temp 97.9(O); Pulse Ox 98% on R/A; Pain 4/10; bs1 06/07 23:06 Body Mass Index 30.86 (71.67 kg, 152.40 cm) lp1 MDM: 00:06 Patient medically screened. pm1 02:00 Data reviewed: vital signs. Data interpreted: Pulse oximetry: on room air is 98 %. pm1 Interpretation: normal. 02:46 Counseling: I had a detailed discussion with the patient and/or guardian regarding: the pm1 historical points, exam findings, and any diagnostic results supporting the discharge/admit diagnosis, lab results, radiology results, the need for outpatient follow up, for definitive care, a general surgeon, to return to the emergency department if symptoms worsen or persist or if there are any questions or concerns that arise at home. 06/07 23:44 Order name: Urine Dipstick--Ancillary (enter results) ms 06/07 23:44 Order name: Urine --Ancillary (enter results) ms 06/08 00:07 Order name: Basic Metabolic Panel; Complete Time: 00:55 pm1 06/08 00:07 Order name: CBC with Diff; Complete Time: 00:36 pm1 06/08 00:07 Order name: Hepatic Function; Complete Time: 00:55 pm1 06/08 00:07 Order name: Lipase; Complete Time: 00:55 pm1 06/07 23:23 Order name: Urine Dipstick-Ancillary (obtain specimen); Complete Time: 00:03 lp1 06/08 00:07 Order name: IV Saline Lock; Complete Time: 00:23 pm1 06/08 00:07 Order name: Labs collected and sent; Complete Time: 00:23 pm1 06/08 00:13 Order name: CT Abd/Pelvis - W/Contrast: IV contrast only pm1 Administered Medications: 00:29 Drug: TORadol 30 mg Route: IVP; Site: right antecubital; bs1 03:11 Follow up: Response: No adverse reaction bs1 00:29 Drug: morphine 4 mg Route: IVP; Site: right antecubital; bs1 03:11 Follow up: Response: No adverse reaction bs1 00:29 Drug: Zofran 4 mg Route: IVP; Site: right antecubital; bs1 03:11 Follow up: Response: No adverse reaction bs1 01:07 Drug: NS 0.9% 1000 ml Route: IV; Rate: 1000 ml; Site: right antecubital; bs1 03:11 Follow up: IV Status: Completed infusion bs1 Disposition: 06/08/18 02:46 Discharged to Home. Impression: Cholelithiasis. - Condition is Stable. - Discharge Instructions: Cholelithiasis. - Prescriptions for Tylenol- Codeine #3 300-30 mg Oral Tablet - take 2 tablets by ORAL route every 6 hours As needed; 20 tablet. - Medication Reconciliation Form, Thank You Letter, Antibiotic Education, Prescription Opioid Use form. - Follow up: Emergency Department; When: As needed; Reason: Worsening of condition. Follow up: Private Physician; When: 2 - 3 days; Reason: Recheck today's complaints, Continuance of care, Re-evaluation by your physician. - Problem is new. - Symptoms have improved. Signatures: Dispatcher [employer] EDBelinda Rios RN RN lp1 Magan Martínez NP POLICY SERVICES REPRESENTATIVE pm1 Andree Morrell RN RN bs1 Corrections: (The following items were deleted from the chart) 03:15 02:46 06/08/2018 02:46 Discharged to Home. Impression: Cholelithiasis. Condition is bs1 Stable. Forms are Medication Reconciliation Form, Thank You Letter, Antibiotic Education, Prescription Opioid Use. Follow up: Emergency Department; When: As needed; Reason: Worsening of condition. Follow up: Private Physician; When: 2 - 3 days; Reason: Recheck today's complaints, Continuance of care, Re-evaluation by your physician. Problem is new. Symptoms have improved. pm1
--- NOTE | 2018-06-08 09:44 | RAD REPORT ---
EXAM DESCRIPTION: CT - Abdomen Pelvis W Contrast - 06/08/2018 6:00 am CLINICAL HISTORY: Abdominal pain, history of cholelithiasis pending surgery, history of gastritis A preliminary written report was provided at the time of the study, and the report was reviewed prio r to final dictation. COMPARISON: Abdomen ultrasound June 01 TECHNIQUE: Biphasic, helical CT imaging of the abdomen and pelvis was performed following 100 ml non -ionic IV contrast. Oral contrast was given. All CT scans are performed using dose optimization technique as appropriate and may include automated exposure control or mA/KV adjustment according to patient size. FINDINGS: No suspicious findings in the lung bases. The liver, spleen, and pancreas show no suspicious findings. Gallbladder is filled but not dilated. N o wall thickening or edema suspected. Known gallstones are occult on CT imaging. Biliary tree within normal limits. Liver is borderline to mildly fatty infiltrated. Symmetric renal function is seen with no hydronephrosis or suspicious renal mass. No pyelonephritis o r acute renal parenchymal process. Contracted urinary bladder shows no suspicious finding. Uterus and ovaries are normal for age. No gastric dilatation or wall thickening. Small bowel loops are not dilated. Several distal small bow el loops are prominent and fluid filled. No bowel obstruction. A few mesenteric lymph nodes are seen in the right lower quadrant. No appendicitis. An acute colon process is not seen. No free air, free fluid or inflammatory stranding. No hernia, mass or bulky lymphadenopathy. No adrenal abnormality. No suspicious bony findings. IMPRESSION: Gallbladder is well filled but not dilated. Acute wall thickening or edema not suspected . Biliary tree is not dilated. The known gallstones are occult on CT imaging. Several prominent distal small bowel loops noted. Nonspecific enteritis is certainly possible.
== END 2018-06-08 03:15 | disposition home or self-care (01) ==
LOC: ER 22:41
DX: K80.20 Calculus of gallbladder without cholecystitis without obstruction (principal)
CPT/HCPCS: 36415; 74177; 80048; 80076; 81003; 81025; 83690; 85025; 96361; 96374; 96375; 99284; J2405; J7030; Q9967

== ENCOUNTER 2018-06-11 18:01 | Emergency (ER) | payer OTHER ==
[2018-06-11] MEDS ORDERED: ONDANSETRON 4 MG/2 ML VIAL ONE ×2 (19:08→23:37)
[2018-06-11] MEDS ORDERED: MORPHINE 4 MG/ML SYR ONE ×2 (19:12→23:37)
[2018-06-11 19:27] LABS: Absolute Lymphocytes (CBC) 0.7 K/uL (0.7-4.9); Absolute Monocytes 0.4 K/uL (0.1-1.3); Absolute Neutrophil 6.8 K/uL (1.8-8.0); Basophils % 0.4 % (0-1.3); Eosinophils % 0.1 % (0-4.4); Hematocrit 38.2 % (36.0-45.0); Lymphocytes % 8.5 % (15.3-44.8); MCH 27.7 pg (27.0-35.0); MCV 80.9 fL (80-100); MPV 8.2 fL (7.6-11.3); Monocytes % 4.7 % (3.3-12.3); RBC Red Blood Cell Count 4.73 M/uL (3.86-4.86)
[2018-06-11 19:33] LABS: Urine Bacteria <20 /HPF (<20); Urine Culture Reflex Order REFLEXED; Urine RBC <5 /HPF (NONE SEEN)
--- NOTE | 2018-06-11 19:37 | EDPHYS ---
Physician Documentation [facility] Name: Leanne Espinoza Age: 22 yrs Sex: Female : 1995 Arrival Date: 06/11/2018 Time: 18:04 Bed 23 Private MD: None, None ED Physician Samuel Cohen HPI: 06/11 19:32 This 22 yrs old Female presents to ER via Ambulatory with complaints of everardo Vomiting, SIDE PAIN. 19:32 The patient presents to the emergency department with nausea, vomiting, abdominal pain, everardo of the epigastric area and right upper quadrant. Onset: The symptoms/episode began/occurred 3 day(s) ago. Possible causes: gallbladder. The symptoms are aggravated by pressure, food , The symptoms are alleviated by remaining still. Associated signs and symptoms: The patient has no apparent associated signs or symptoms. Severity of symptoms: At their worst the symptoms were moderate in the emergency department the symptoms are unchanged. The patient has not experienced similar symptoms in the past. 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 - Social history:: Smoking status: Patient/guardian denies using tobacco. - Ebola Screening: : No symptoms or risks identified at this time. - Family history:: not pertinent. ROS: 19:32 Constitutional: Negative for fever, chills, and weight loss, Eyes: Negative for injury, everardo pain, redness, and discharge, ENT: Negative for injury, pain, and discharge, Neck: Negative for injury, pain, and swelling, Cardiovascular: Negative for chest pain, palpitations, and edema, Respiratory: Negative for shortness of breath, cough, wheezing, and pleuritic chest pain, Back: Negative for injury and pain, : Negative for injury, bleeding, discharge, and swelling, MS/Extremity: Negative for injury and deformity, Skin: Negative for injury, rash, and discoloration, Neuro: Negative for headache, weakness, numbness, tingling, and seizure, Psych: Negative for depression, anxiety, suicide ideation, homicidal ideation, and hallucinations, Allergy/Immunology: Negative for hives, rash, and allergies, Endocrine: Negative for neck swelling, polydipsia, polyuria, polyphagia, and marked weight changes, Hematologic/Lymphatic: Negative for swollen nodes, abnormal bleeding, and unusual bruising. 19:32 Abdomen/GI: Positive for abdominal pain, of the epigastric area and right upper quadrant. Exam: 19:32 Constitutional: This is a well developed, well nourished patient who is awake, alert, everardo and in no acute distress. Head/Face: Normocephalic, atraumatic. Eyes: Pupils equal round and reactive to light, extra-ocular motions intact. Lids and lashes normal. Conjunctiva and sclera are non-icteric and not injected. Cornea within normal limits. Periorbital areas with no swelling, redness, or edema. ENT: Nares patent. No nasal discharge, no septal abnormalities noted. Tympanic membranes are normal and external auditory canals are clear. Oropharynx with no redness, swelling, or masses, exudates, or evidence of obstruction, uvula midline. Mucous membranes moist. Neck: Trachea midline, no thyromegaly or masses palpated, and no cervical lymphadenopathy. Supple, full range of motion without nuchal rigidity, or vertebral point tenderness. No Meningismus. Chest/axilla: Normal chest wall appearance and motion. Nontender with no deformity. No lesions are appreciated. Cardiovascular: Regular rate and rhythm with a normal S1 and S2. No gallops, murmurs, or rubs. Normal PMI, no JVD. No pulse deficits. Respiratory: Lungs have equal breath sounds bilaterally, clear to auscultation and percussion. No rales, rhonchi or wheezes noted. No increased work of breathing, no retractions or nasal flaring. Back: No spinal tenderness. No costovertebral tenderness. Full range of motion. Female : Normal external genitalia. Skin: Warm, dry with normal turgor. Normal color with no rashes, no lesions, and no evidence of cellulitis. MS/ Extremity: Pulses equal, no cyanosis. Neurovascular intact. Full, normal range of motion. Neuro: Awake and alert, GCS 15, oriented to person, place, time, and situation. Cranial nerves II-XII grossly intact. Motor strength 5/5 in all extremities. Sensory grossly intact. Cerebellar exam normal. Normal gait. Psych: Awake, alert, with orientation to person, place and time. Behavior, mood, and affect are within normal limits. 19:32 Abdomen/GI: Inspection: abdomen appears normal, Bowel sounds: normal, Palpation: moderate abdominal tenderness, Liver: no appreciated palpable abnormalities, Hernia: not appreciated. Vital Signs: 18:11 BP 143 / 98; Pulse 89; Resp 20; Pulse Ox 100% ; Weight 71.67 kg; Height 5 ft. 3 in. sv (160.02 cm); Pain 10/10; 20:09 BP 128 / 94; Pulse 76; Resp 18; Temp 97.3; Pulse Ox 100% on R/A; Pain 6/10; ed1 21:03 BP 125 / 87; Pulse 81; Resp 17; Temp 98.3(O); Pulse Ox 100% on R/A; Pain 6/10; ed1 23:40 BP 122 / 74; Pulse 83; Resp 17; Temp 97.6(O); Pulse Ox 99% on R/A; Pain 6/10; ed1 18:11 Body Mass Index 27.99 (71.67 kg, 160.02 cm) sv MDM: 18:16 Patient medically screened. [facility] 19:32 Data reviewed: vital signs, nurses notes, lab test result(s), radiologic studies, plain everardo films, ultrasound. 08 19:01 Order name: Amylase, Serum ed1 06/11 19:01 Order name: Basic Metabolic Panel ed1 06/11 19:01 Order name: CBC with Diff; Complete Time: 20:58 ed1 06/11 19:01 Order name: Creatinine for Radiology; Complete Time: 20:02 ed1 06/11 19:01 Order name: Hepatic Function; Complete Time: 20:02 ed1 06/11 19:01 Order name: Lipase; Complete Time: 20:02 ed1 06/11 19:01 Order name: Urine Microscopic Only; Complete Time: 20:02 ed1 06/11 19:02 Order name: Amylase Level; Complete Time: 20:02 EDMS 06/11 19:02 Order name: Basic Metabolic Panel; Complete Time: 20:02 EDNJ 06/11 19:30 Order name: Manual Differential; Complete Time: 20:58 EDMS 06/11 19:34 Order name: Urine Culture EDMS 06/11 19:36 Order name: Urine Dipstick--Ancillary (enter results); Complete Time: 20:02 eb 06/11 19:36 Order name: Urine --Ancillary (enter results); Complete Time: 20:02 eb 06/11 19:43 Order name: Basic Metabolic Panel EDMS 06/11 19:32 Order name: US Abdomen Limited; Complete Time: 20:58 everardo 06/11 19:43 Order name: NPO EDMS 06/11 19:43 Order name: CBC with Automated Diff EDMS 06/11 19:43 Order name: Lipase EDMS 06/11 19:43 Order name: Liver (Hepatic) Function EDMS 06/11 19:01 Order name: Urine Test (obtain specimen); Complete Time: 19:14 ed1 06/11 19:01 Order name: IV Saline Lock; Complete Time: 19:14 ed1 06/11 19:01 Order name: Labs collected and sent; Complete Time: 19:14 ed1 06/11 19:01 Order name: Urine Dipstick-Ancillary (obtain specimen); Complete Time: 19:14 ed1 Administered Medications: 19:11 Drug: morphine 4 mg Route: IVP; Site: right antecubital; bb 21:12 Follow up: Response: No adverse reaction; Pain is decreased ed1 19:11 Drug: Zofran 4 mg Route: IVP; Site: right antecubital; bb 21:11 Follow up: Response: Nausea is decreased ed1 20:08 Drug: NS 0.9% 1000 ml Route: IV; Rate: 1 bolus; Site: right antecubital; ed1 21:10 Follow up: IV Status: Completed infusion; IV Intake: 1000ml ed1 20:09 Drug: Pepcid 20 mg Route: IVP; Site: right antecubital; bb 21:10 Follow up: Response: No adverse reaction ed1 20:09 Drug: Zosyn 3.375 grams Route: IVPB; Infused Over: 60 mins; Site: right antecubital; ed1 21:09 Follow up: IV Status: Completed infusion; IV Intake: 100ml ed1 23:39 Drug: morphine 4 mg Route: IVP; Site: right antecubital; ed1 23:39 Follow up: Response: Medication administered at discharge. ed1 23:39 Drug: Zofran 4 mg Route: IVP; Site: right antecubital; ed1 23:40 Follow up: Response: Medication administered at discharge. ed1 Disposition: 06/11/18 20:[address] [facility]. Diagnosis are Abdominal tenderness, Cholecystitis, Cholelithiasis. - Reason for transfer: Higher level of care. - [facility] - Condition is Stable. - Problem is new. - Symptoms have improved. Signatures: Dispatcher [employer] EDVal Cruz, RN RN Samuel Wilson MD MD cha Ballard, Brenda, RN RN Roseann Anderson LVN PLANT PROPAGATOR ed1 Corrections: (The following items were deleted from the chart) 20:03 19:36 Hospitalization Ordered by Ta Blackburn MD for Observation. Preliminary everardo diagnosis is Abdominal tenderness; Cholecystitis; Cholelithiasis. Bed requested for Telemetry/MedSurg (observation). Status is Observation. Condition is Stable. Problem is new. Symptoms have improved. UTI on Admission? No. everardo 23:42 20:03 06/11/2018 20:[address] [facility]. Diagnosis is ed1 Abdominal tenderness; Cholecystitis; Cholelithiasis. Reason for transfer: Higher level of care. [facility] Condition is Stable. Problem is new. Symptoms have improved. everardo
--- NOTE | 2018-06-11 19:37 | ER ---
Nurse's Notes [facility] Name: Leanne Espinoza Age: 22 yrs Sex: Female : 1995 Arrival Date: 06/11/2018 Time: 18:04 Bed 23 Private MD: None, None Diagnosis: Abdominal tenderness;Cholecystitis;Cholelithiasis Presentation: 06/11 18:09 Presenting complaint: Patient states: RUQ and epigastric pain started Friday. c/o sv vomiting as well. Pt was dx with gallstones. Last meal today at 0730. Transition of care: patient was not received from another setting of care. Onset of symptoms was June 09, 2018. Care prior to arrival: None. 18:09 Method Of Arrival: Ambulatory sv 18:09 Acuity: ACE 3 sv 18:37 Risk Assessment: Do you want to hurt yourself or someone else? Patient reports no ed1 desire to harm self or others. Initial Sepsis Screen: Does the patient meet any 2 criteria? No. Patient's initial sepsis screen is negative. Does the patient have a suspected source of infection? No. Patient's initial sepsis screen is negative. 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 - Social history:: Smoking status: Patient/guardian denies using tobacco. - Ebola Screening: : No symptoms or risks identified at this time. - Family history:: not pertinent. Screenin:37 Abuse screen: Denies threats or abuse. Denies injuries from another. Nutritional ed1 screening: No deficits noted. Tuberculosis screening: No symptoms or risk factors identified. Fall Risk None identified. Assessment: 18:37 General: Appears in no apparent distress. Behavior is calm, cooperative. Pain: ed1 Complains of pain in abdomen Pain does not radiate. Pain currently is 10 out of 10 on a pain scale. Quality of pain is described as sharp, Pain began 1 day ago. Is continuous. Neuro: Level of Consciousness is awake, alert, obeys commands, Oriented to person, place, time, situation. Cardiovascular: Denies chest pain, Heart tones S1 S2 present. Respiratory: Airway is patent Respiratory effort is even, unlabored, Respiratory pattern is regular, symmetrical, Breath sounds are clear bilaterally. GI: Abdomen is non-distended, Bowel sounds present X 4 quads. Abd is soft and non tender X 4 quads. Reports nausea, vomiting, Patient currently denies diarrhea. : No signs and/or symptoms were reported regarding the genitourinary system. EENT: No signs and/or symptoms were reported regarding the EENT system. Derm: Skin is healthy with good turgor, Skin is dry, Skin is normal, Skin temperature is warm. Musculoskeletal: Circulation, motion, and sensation intact. 20:09 Reassessment: Patient appears in no apparent distress at this time. Patient and/or ed1 family updated on plan of care and expected duration. Pain level reassessed. Patient is alert, oriented x 3, equal unlabored respirations, skin warm/dry/pink. Patient states feeling better. Patient states symptoms have improved. 21:03 Reassessment: Patient appears in no apparent distress at this time. Patient and/or ed1 family updated on plan of care and expected duration. Pain level reassessed. Patient is alert, oriented x 3, equal unlabored respirations, skin warm/dry/pink. Pt states "My pain is coming back.". 21:53 Reassessment: Report called to Danii Brian RN at [facility]. ed1 23:40 Reassessment: Patient appears in no apparent distress at this time. Patient and/or ed1 family updated on plan of care and expected duration. Pain level reassessed. Patient is alert, oriented x 3, equal unlabored respirations, skin warm/dry/pink. Patient states symptoms have not improved. Vital Signs: 18:11 BP 143 / 98; Pulse 89; Resp 20; Pulse Ox 100% ; Weight 71.67 kg; Height 5 ft. 3 in. sv (160.02 cm); Pain 10/10; 20:09 BP 128 / 94; Pulse 76; Resp 18; Temp 97.3; Pulse Ox 100% on R/A; Pain 6/10; ed1 21:03 BP 125 / 87; Pulse 81; Resp 17; Temp 98.3(O); Pulse Ox 100% on R/A; Pain 6/10; ed1 23:40 BP 122 / 74; Pulse 83; Resp 17; Temp 97.6(O); Pulse Ox 99% on R/A; Pain 6/10; ed1 18:11 Body Mass Index 27.99 (71.67 kg, 160.02 cm) sv ED Course: 18:04 Patient arrived in ED. sb2 18:05 None, None is Private Physician. sb2 18:10 Triage completed. sv 18:11 Arm band placed on right wrist. sv 18:13 Roseann Gutierrez LVN is Primary Nurse. ed1 18:16 Samuel Cohen MD is Attending Physician. everardo 18:37 Patient has correct armband on for positive identification. Bed in low position. Call ed1 light in reach. Adult w/ patient. 19:05 Initial lab(s) drawn, by me, held in ED. Inserted saline lock: 22 gauge in right ed1 antecubital area, using aseptic technique. Blood collected. 19:12 Warm blanket given. Pillow given. jp3 19:36 Ta Blackburn MD is Hospitalizing Provider. everardo 20:00 US Abdomen Limited In Process Unspecified. EDMS 21:53 transfer transportation to receiving facility. ed1 23:41 No provider procedures requiring assistance completed. Patient transferred, IV remains ed1 in place. intact, No redness/swelling at site. Administered Medications: 19:11 Drug: morphine 4 mg Route: IVP; Site: right antecubital; bb 21:12 Follow up: Response: No adverse reaction; Pain is decreased ed1 19:11 Drug: Zofran 4 mg Route: IVP; Site: right antecubital; bb 21:11 Follow up: Response: Nausea is decreased ed1 20:08 Drug: NS 0.9% 1000 ml Route: IV; Rate: 1 bolus; Site: right antecubital; ed1 21:10 Follow up: IV Status: Completed infusion; IV Intake: 1000ml ed1 20:09 Drug: Pepcid 20 mg Route: IVP; Site: right antecubital; bb 21:10 Follow up: Response: No adverse reaction ed1 20:09 Drug: Zosyn 3.375 grams Route: IVPB; Infused Over: 60 mins; Site: right antecubital; ed1 21:09 Follow up: IV Status: Completed infusion; IV Intake: 100ml ed1 23:39 Drug: morphine 4 mg Route: IVP; Site: right antecubital; ed1 23:39 Follow up: Response: Medication administered at discharge. ed1 23:39 Drug: Zofran 4 mg Route: IVP; Site: right antecubital; ed1 23:40 Follow up: Response: Medication administered at discharge. ed1 Intake: 21:09 IV: 100ml; Total: 100ml. ed1 21:10 IV: 1000ml; Total: 1100ml. ed1 Outcome: 19:36 Decision to Hospitalize by Provider. [facility] 20:03 ER care complete, transfer ordered by . [facility] 23:41 Transferred by ground EMS to [facility], Transfer form completed. ed1 23:41 Condition: stable 23:41 Discharge instructions given to patient, Instructed on the need for transfer, Demonstrated understanding of instructions. 23:42 Patient left the ED. ed1 Signatures: Dispatcher [employer] Val Delaney RN RN sv Anderson, Corey, MD MD cha Ballard, Brenda RN RN Roseann Anderson, RECORDS SUPERVISOR RECORDS SUPERVISOR ed1 Krystal Garrett2 Jeremi Wagoner jp3 Corrections: (The following items were deleted from the chart) 18:11 18:09 Presenting complaint: Patient states: RUQ and epigastric pain started Friday. sv c/o vomiting as well. Pt was dx with gallstones. sv
[2018-06-11 19:40] LABS: ALT/SGPT 558 U/L (12-78); Albumin 4.3 g/dL (3.4-5.0); Alkaline Phosphatase 318 U/L (45-117); Amylase Level 43 U/L (25-115); BUN Blood Urea Nitrogen 8 mg/dL (7-18); Bicarbonate 27 mmol/L (21-32); Bilirubin Direct 3.8 mg/dL (0-0.2); Bilirubin Total 4.6 mg/dL (0.2-1.0); Glucose Level 107 mg/dL (74-106); Lipase 82 U/L (73-393); Potassium 3.7 mmol/L (3.5-5.1); Protein, Total 9.5 g/dL (6.4-8.2); Sodium Level 135 mmol/L (136-145)
[2018-06-11] MEDS ORDERED: ONDANSETRON 4 MG/2 ML VIAL IV PRN (19:40)
[2018-06-11] MEDS ORDERED: MORPHINE 4 MG/ML SYR IV PRN (19:40)
[2018-06-11] MEDS ORDERED: ACETAMINOPHEN 500 MG TAB PO PRN (19:40)
[2018-06-11 19:42] LABS: Urine Blood 1+ (NEG); Urine Glucose NEGATIVE (NEG); Urine Protein 1+ (NEG); Urine Specific Gravity 1.025 (1.005-1.030)
[2018-06-11 19:43] LABS: AST/SGOT 439 U/L (15-37)
[2018-06-11] MEDS ORDERED: NA CHLORIDE 0.9% 1,000 ML ONE (19:52)
[2018-06-11] MEDS ORDERED: PIPER/TAZO/NS 3.375gm 3.375 GM/100 ML BAG ONE (19:52)
[2018-06-11] MEDS ORDERED: D5 0.45 NS 1,000 ML IV SCH (20:00)
[2018-06-11 20:14] LABS: Blood Morphology Comment NOT SEEN (NOT SEEN); Platelet Estimate ADEQ
--- NOTE | 2018-06-11 20:14 | RAD REPORT ---
EXAM DESCRIPTION: US - Abdomen Exam Limited - 06/11/2018 8:00 pm CLINICAL HISTORY: ABD PAIN COMPARISON: Abdomen Exam Limited dated 06/01/2018 FINDINGS: The gallbladder demonstrates sludge and small gallstones. No pericholecystic fluid or gall bladder wall thickening. The common bile duct is normal measuring 4 mm. The liver demonstrates no findings of intrahepatic biliary dilatation. IMPRESSION: Cholelithiasis.
[2018-06-11] MEDS ORDERED: FAMOTIDINE 20 MG/2 ML VIAL IV SCH (21:00)
[2018-06-12] MEDS ORDERED: PIPER/TAZO/NS 3.375gm 3.375 GM/100 ML BAG IVPB SCH
== END 2018-06-11 23:42 | disposition short-term general hospital (02) ==
LOC: ER 18:01 → ERHOLD 20:09 → UNDOADMOB 20:09 → ER 23:42
DX: K80.10 Calculus of gallbladder with chronic cholecystitis without obstruction (principal)
CPT/HCPCS: 36415; 76705; 80048; 80076; 81003; 81015; 81025; 82150; 83690; 85025; 87086; 87088; 96361; 96365; 96375; 99285; J2405; J2543; J7030